=== PATIENT | female | born 1970 | race Asian ===

== ENCOUNTER 2017-02-21 08:48 | Outpatient (CLI) | payer OTHER ==
[~2017-02-21 08:48] MED LIST: MYLANTA
[2017-02-21 09:58] LABS: ANION GAP 13.9 (8-16); CARBON DIOXIDE 28.8 mmol/L (21-32); CREATININE 0.6 mg/dL (0.6-1.3); POTASSIUM 3.7 mmol/L (3.5-5.1); TOTAL BILIRUBIN 1.1 mg/dL (0.0-1.0); TOTAL PROTEIN, SERUM 7.5 g/dL (6.4-8.2)
[2017-02-22 10:08] LABS: VITAMIN D, 25-HYDROXY 32.1 ng/mL (30.0-100.0)
[2017-02-22 12:36] LABS: HEMOGLOBIN A1C 7.9 % (4.8-5.6)
== END 2017-02-21 19:59 | disposition home or self-care (01) ==
LOC: MLB 08:48
PROVIDERS: ATTEND Internal Medicine Geriatric Medicine
DX: E11.9 Type 2 diabetes mellitus without complications (principal); E55.9 Vitamin D deficiency, unspecified
CPT/HCPCS: 36415; 80053; 82306; 83036

== ENCOUNTER 2017-06-02 10:10 | Outpatient (CLI) | payer OTHER ==
[2017-06-02 10:47] LABS: ALBUMIN 4.2 g/dL (3.4-5.0); CARBON DIOXIDE 27.1 mmol/L (21-32); CREATININE 0.7 mg/dL (0.6-1.3); POTASSIUM 4.1 mmol/L (3.5-5.1); TOTAL BILIRUBIN 1.6 mg/dL (0.0-1.0)
== END 2017-06-02 20:17 | disposition home or self-care (01) ==
LOC: MLB 10:10
PROVIDERS: ATTEND Internal Medicine Geriatric Medicine
DX: E11.9 Type 2 diabetes mellitus without complications (principal); E78.5 Hyperlipidemia, unspecified
CPT/HCPCS: 36415; 80053; 83036

== ENCOUNTER 2017-09-03 11:40 | Outpatient (CLI) | payer OTHER ==
[2017-09-03 12:52] LABS: ALBUMIN 4.6 g/dL (3.4-5.0); ANION GAP 11.9 (8-16); CARBON DIOXIDE 28.4 mmol/L (21-32); CHOL/HDL RATIO 3.1 (1-4.5); CREATININE 0.7 mg/dL (0.6-1.3); POTASSIUM 3.3 mmol/L (3.5-5.1); TOTAL BILIRUBIN 1.4 mg/dL (0.0-1.0)
[2017-09-06 12:21] LABS: MICROALBUMIN, UR RANDOM 1804.6 ug/mL (Not Estab.)
== END 2017-09-03 21:53 | disposition home or self-care (01) ==
LOC: MLB 11:40
PROVIDERS: ATTEND Internal Medicine Geriatric Medicine
DX: E11.9 Type 2 diabetes mellitus without complications (principal); Z85.038 Personal history of other malignant neoplasm of large intestine
CPT/HCPCS: 36415; 80053; 82043; 82378; 83036

== ENCOUNTER 2017-12-15 07:37 | Outpatient (CLI) | payer OTHER ==
[2017-12-15 09:50] LABS: CARBON DIOXIDE 29.9 mmol/L (21-32); POTASSIUM 3.9 mmol/L (3.5-5.1)
[2017-12-15 09:51] LABS: ALBUMIN 4.3 g/dL (3.4-5.0); CREATININE 0.7 mg/dL (0.6-1.3); TOTAL BILIRUBIN 1.4 mg/dL (0.0-1.0)
[2017-12-15 10:06] LABS: CHOL/HDL RATIO 3.5 (1-4.5)
[2017-12-17 06:18] LABS: MICROALBUMIN, UR RANDOM 201.4 ug/mL (Not Estab.)
== END 2017-12-15 20:44 | disposition home or self-care (01) ==
LOC: MLB 07:37
PROVIDERS: ATTEND Internal Medicine Geriatric Medicine
DX: E11.9 Type 2 diabetes mellitus without complications (principal); Z85.038 Personal history of other malignant neoplasm of large intestine
CPT/HCPCS: 36415; 80053; 82043; 82378; 83036

== ENCOUNTER 2018-04-21 08:41 | Outpatient (CLI) | payer OTHER ==
[2018-04-21 09:30] LABS: ALBUMIN 3.9 g/dL (3.4-5.0); ANION GAP 12.8 (8-16); CARBON DIOXIDE 28.5 mmol/L (21-32); CHOL/HDL RATIO 3.8 (1-4.5); CREATININE 0.7 mg/dL (0.6-1.3); POTASSIUM 4.3 mmol/L (3.5-5.1)
[2018-04-22 12:13] LABS: HEPATITIS B SURFACE ANTIBODY Non Reactive (.); HEPATITIS B SURFACE ANTIGEN Negative (Negative)
== END 2018-04-21 17:24 | disposition home or self-care (01) ==
LOC: MLB 08:41
PROVIDERS: ATTEND Internal Medicine Geriatric Medicine
DX: K76.0 Fatty (change of) liver, not elsewhere classified (principal); E11.9 Type 2 diabetes mellitus without complications; E78.5 Hyperlipidemia, unspecified
CPT/HCPCS: 36415; 80053; 83036; 86706; 86803; 87340

== ENCOUNTER 2018-08-15 08:47 | Outpatient (CLI) | payer OTHER ==
[2018-08-15 09:58] LABS: ANION GAP 9.5 (8-16); CARBON DIOXIDE 27.5 mmol/L (21-32); CREATININE 0.6 mg/dL (0.6-1.3)
== END 2018-08-15 21:38 | disposition home or self-care (01) ==
LOC: MLB 08:47
PROVIDERS: ATTEND Internal Medicine Geriatric Medicine
DX: E11.9 Type 2 diabetes mellitus without complications (principal)
CPT/HCPCS: 36415; 80048; 82378; 83036

== ENCOUNTER → 2018-12-08 | Outpatient (CLI) | payer OTHER ==
[2018-12-08 10:49] LABS: ALBUMIN 4.5 g/dL (3.4-5.0); ANION GAP 10.2 (8-16); CARBON DIOXIDE 29.5 mmol/L (21-32); CHOL/HDL RATIO 3.3 (1-4.5); CREATININE 0.7 mg/dL (0.6-1.3); POTASSIUM 3.7 mmol/L (3.5-5.1); TOTAL BILIRUBIN 1.4 mg/dL (0.0-1.0)
[2018-12-09 08:14] LABS: MICROALBUMIN, UR RANDOM 205.1 ug/mL (Not Estab.)
== END | disposition home or self-care (01) ==
LOC: MLB 09:48
PROVIDERS: ATTEND Internal Medicine Geriatric Medicine
DX: E11.9 Type 2 diabetes mellitus without complications (principal); K76.0 Fatty (change of) liver, not elsewhere classified; E55.9 Vitamin D deficiency, unspecified; Z76.89 Persons encountering health services in other specified circumstances
CPT/HCPCS: 36415; 80053; 82043; 82306; 82378; 83036

== ENCOUNTER 2019-04-06 08:44 | Outpatient (CLI) | payer OTHER ==
[2019-04-06 09:26] LABS: ALBUMIN 4.2 g/dL (3.4-5.0); ANION GAP 14.1 (8-16); CARBON DIOXIDE 27.8 mmol/L (21-32); CHOL/HDL RATIO 3.3 (1-4.5); CREATININE 0.7 mg/dL (0.6-1.3); POTASSIUM 3.9 mmol/L (3.5-5.1); TOTAL BILIRUBIN 0.8 mg/dL (0.0-1.0)
== END 2019-04-06 21:05 | disposition home or self-care (01) ==
LOC: MLB 08:44
PROVIDERS: ATTEND Internal Medicine Geriatric Medicine
DX: E11.9 Type 2 diabetes mellitus without complications (principal); E78.5 Hyperlipidemia, unspecified; E55.9 Vitamin D deficiency, unspecified
CPT/HCPCS: 36415; 80053; 82306; 83036

== ENCOUNTER 2019-07-12 07:46 | Outpatient (CLI) | payer OTHER ==
[2019-07-12 08:28] LABS: BASOPHILS % (AUTO) 0.5 % (0.0-2.0); EOSINOPHILS # (AUTO) 0.3 K/uL (0-0.4); EOSINOPHILS % (AUTO) 3.6 % (0.0-4.0); HEMATOCRIT 40.1 % (36-48); HEMOGLOBIN 13.3 g/dL (12.0-16.0); LYMPHOCYTES # (AUTO) 2.9 K/uL (2.5-16.5); LYMPHOCYTES % (AUTO) 38.4 % (20.5-51.1); MEAN CORPUSCULAR HEMOGLOBIN 29 pg (27-31); MEAN CORPUSCULAR HGB CONC 33 g/dL (33-37); MEAN CORPUSCULAR VOLUME 87.2 fL (80-94); MONOCYTES # (AUTO) 0.6 K/uL (0.8-1.0); MONOCYTES % (AUTO) 8.2 % (1.7-9.3); NEUTROPHILS # (AUTO) 3.7 K/uL (1.8-7.7); NEUTROPHILS % (AUTO) 49.3 % (42.2-75.2); PLATELET COUNT (AUTO) 316 K/uL (140-450); RED CELL DISTRIBUTION WIDTH 12.9 % (11.6-13.7); WHITE BLOOD COUNT (AUTO) 7.4 K/uL (4.8-10.8)
[2019-07-12 11:06] LABS: ALBUMIN 4.3 g/dL (3.4-5.0); ANION GAP 17.2 (8-16); CARBON DIOXIDE 25.7 mmol/L (21-32); CHOL/HDL RATIO 3.2 (1-4.5); CREATININE 0.7 mg/dL (0.6-1.3); POTASSIUM 3.9 mmol/L (3.5-5.1); TOTAL BILIRUBIN 1.3 mg/dL (0.0-1.0)
[2019-07-13 09:28] LABS: FOLLICLE STIMULATING HORMONE 47.5 mIU/mL (.)
[2019-07-14 09:12] LABS: ANTI-NUCLEAR ANTIBODY,DIRECT Negative (Negative)
== END 2019-07-12 20:09 | disposition home or self-care (01) ==
LOC: MLB 07:46
PROVIDERS: ATTEND Internal Medicine Geriatric Medicine
DX: E11.9 Type 2 diabetes mellitus without complications (principal); E55.9 Vitamin D deficiency, unspecified; N95.1 Menopausal and female climacteric states; K76.0 Fatty (change of) liver, not elsewhere classified
CPT/HCPCS: 36415; 80053; 82306; 83001; 83036; 83516; 85025; 86038

== ENCOUNTER 2019-10-18 08:44 | Outpatient (CLI) | payer OTHER ==
[2019-10-18 09:14] LABS: BASOPHILS % (AUTO) 0.5 % (0.0-2.0); EOSINOPHILS # (AUTO) 0.2 K/uL (0-0.4); EOSINOPHILS % (AUTO) 2.6 % (0.0-4.0); HEMOGLOBIN 13.9 g/dL (12.0-16.0); LYMPHOCYTES # (AUTO) 3.7 K/uL (2.5-16.5); LYMPHOCYTES % (AUTO) 44.5 % (20.5-51.1); MEAN CORPUSCULAR HEMOGLOBIN 29 pg (27-31); MEAN CORPUSCULAR HGB CONC 33 g/dL (33-37); MONOCYTES # (AUTO) 0.6 K/uL (0.8-1.0); MONOCYTES % (AUTO) 7.4 % (1.7-9.3); NEUTROPHILS # (AUTO) 3.7 K/uL (1.8-7.7); PLATELET COUNT (AUTO) 368 K/uL (140-450); RED BLOOD CELL COUNT(AUTO) 4.77 MIL/uL (4.20-5.40); RED CELL DISTRIBUTION WIDTH 13.2 % (11.6-13.7); WHITE BLOOD COUNT (AUTO) 8.2 K/uL (4.8-10.8)
[2019-10-18 09:30] LABS: ALBUMIN 4.5 g/dL (3.4-5.0); ANION GAP 13.4 (8-16); CARBON DIOXIDE 29.1 mmol/L (21-32); CHOL/HDL RATIO 2.8 (1-4.5); CREATININE 0.6 mg/dL (0.6-1.3); POTASSIUM 3.5 mmol/L (3.5-5.1); TOTAL BILIRUBIN 1.8 mg/dL (0.0-1.0)
[2019-10-19 08:27] LABS: MICROALBUMIN, UR RANDOM 312.2 ug/mL (Not Estab.)
== END 2019-10-18 21:18 | disposition home or self-care (01) ==
LOC: MLB 08:44
PROVIDERS: ATTEND Internal Medicine Geriatric Medicine
DX: E78.5 Hyperlipidemia, unspecified (principal); E11.9 Type 2 diabetes mellitus without complications; R80.9 Proteinuria, unspecified; I10 Essential (primary) hypertension
CPT/HCPCS: 36415; 80053; 82043; 83036; 85025

== ENCOUNTER 2019-12-04 08:30 | Outpatient (CLI) | payer OTHER ==
[2019-12-04 10:26] LABS: ALBUMIN 3.8 g/dL (3.4-5.0); ANION GAP 16.9 (8-16); CARBON DIOXIDE 26.3 mmol/L (21-32); CHOL/HDL RATIO 3.9 (1-4.5); CREATININE 0.6 mg/dL (0.6-1.3); POTASSIUM 4.2 mmol/L (3.5-5.1); TOTAL BILIRUBIN 0.8 mg/dL (0.0-1.0)
== END 2019-12-04 21:06 | disposition home or self-care (01) ==
LOC: MLB 08:30
PROVIDERS: ATTEND Internal Medicine Geriatric Medicine
DX: E11.9 Type 2 diabetes mellitus without complications (principal); K76.0 Fatty (change of) liver, not elsewhere classified; Z86.010 Personal history of colon polyps
CPT/HCPCS: 36415; 80053; 82378; 83036

== ENCOUNTER 2020-04-03 09:19 | Outpatient (CLI) | payer OTHER ==
[2020-04-03 09:53] LABS: BASOPHILS % (AUTO) 0.5 % (0.0-2.0); EOSINOPHILS # (AUTO) 0.2 K/uL (0-0.4); EOSINOPHILS % (AUTO) 2.9 % (0.0-4.0); HEMATOCRIT 39.8 % (36-48); HEMOGLOBIN 13.2 g/dL (12.0-16.0); LYMPHOCYTES # (AUTO) 3.5 K/uL (2.5-16.5); LYMPHOCYTES % (AUTO) 44.9 % (20.5-51.1); MEAN CORPUSCULAR HEMOGLOBIN 29 pg (27-31); MEAN CORPUSCULAR HGB CONC 33 g/dL (33-37); MEAN CORPUSCULAR VOLUME 88.1 fL (80-94); MONOCYTES # (AUTO) 0.6 K/uL (0.8-1.0); MONOCYTES % (AUTO) 7.1 % (1.7-9.3); NEUTROPHILS # (AUTO) 3.5 K/uL (1.8-7.7); NEUTROPHILS % (AUTO) 44.6 % (42.2-75.2); PLATELET COUNT (AUTO) 300 K/uL (140-450); RED BLOOD CELL COUNT(AUTO) 4.51 MIL/uL (4.20-5.40); RED CELL DISTRIBUTION WIDTH 13.1 % (11.6-13.7); WHITE BLOOD COUNT (AUTO) 7.8 K/uL (4.8-10.8)
[2020-04-03 10:05] LABS: ALBUMIN 4.2 g/dL (3.4-5.0); CARBON DIOXIDE 28.3 mmol/L (21-32); CHOL/HDL RATIO 3.3 (1-4.5); CREATININE 0.7 mg/dL (0.6-1.3); POTASSIUM 4.3 mmol/L (3.5-5.1); TOTAL BILIRUBIN 1.2 mg/dL (0.0-1.0)
== END 2020-04-03 20:54 | disposition home or self-care (01) ==
LOC: MLB 09:19
PROVIDERS: ATTEND Internal Medicine Geriatric Medicine
DX: E11.9 Type 2 diabetes mellitus without complications (principal); E55.9 Vitamin D deficiency, unspecified; K76.0 Fatty (change of) liver, not elsewhere classified
CPT/HCPCS: 36415; 80053; 82103; 82306; 82390; 82728; 83036; 83540; 85025

== ENCOUNTER 2020-07-01 08:54 | Outpatient (CLI) | payer OTHER ==
[2020-07-01 10:22] LABS: ALBUMIN 4.3 g/dL (3.4-5.0); ANION GAP 17.1 (8-16); CARBON DIOXIDE 25.1 mmol/L (21-32); CHOL/HDL RATIO 3.2 (1-4.5); CREATININE 0.7 mg/dL (0.6-1.3); POTASSIUM 4.2 mmol/L (3.5-5.1); TOTAL BILIRUBIN 0.9 mg/dL (0.0-1.0)
[2020-07-02 09:09] LABS: MICROALBUMIN, UR RANDOM 104.4 ug/mL (Not Estab.)
== END 2020-07-01 18:09 | disposition home or self-care (01) ==
LOC: MLB 08:54
PROVIDERS: ATTEND Internal Medicine Geriatric Medicine
DX: E11.9 Type 2 diabetes mellitus without complications (principal); I10 Essential (primary) hypertension; K76.0 Fatty (change of) liver, not elsewhere classified; R80.9 Proteinuria, unspecified
CPT/HCPCS: 36415; 80053; 82043; 83036

== ENCOUNTER 2020-07-22 18:39 | Outpatient (CLI) | payer OTHER ==
[2020-07-22 21:33] LABS: BARBITURATE, URINE NEGATIVE ng/ml (NEG <=200); BENZODIAZEPINE, URINE NEGATIVE ng/mL (NEG <=200); CANNABINOID, URINE NEGATIVE ng/mL (NEG <=50); COCAINE, URINE NEGATIVE ng/mL (NEG <=300); OPIATE, URINE NEGATIVE ng/mL (NEG <=2000); PHENCYCLIDINE SCREEN,URINE NEGATIVE ng/mL (NEG <=25)
== END 2020-07-22 21:23 | disposition home or self-care (01) ==
LOC: MLB 18:39
PROVIDERS: ATTEND Internal Medicine Geriatric Medicine
DX: R82.5 Elevated urine levels of drugs, medicaments and biological substances (principal)
CPT/HCPCS: 80305

== ENCOUNTER 2021-03-05 09:06 | Outpatient (CLI) | payer OTHER ==
[2021-03-05 09:39] LABS: BASOPHILS # (AUTO) 0.1 K/uL (0.00-0.22); BASOPHILS % (AUTO) 0.8 % (0.0-2.0); EOSINOPHILS # (AUTO) 0.2 K/uL (0-0.4); EOSINOPHILS % (AUTO) 2.9 % (0.0-4.0); HEMATOCRIT 39.4 % (36-48); HEMOGLOBIN 13.1 g/dL (12.0-16.0); LYMPHOCYTES # (AUTO) 3.5 K/uL (2.5-16.5); LYMPHOCYTES % (AUTO) 44.3 % (20.5-51.1); MEAN CORPUSCULAR HEMOGLOBIN 29 pg (27-31); MEAN CORPUSCULAR HGB CONC 33 g/dL (33-37); MEAN CORPUSCULAR VOLUME 87.2 fL (80-94); MONOCYTES # (AUTO) 0.6 K/uL (0.8-1.0); MONOCYTES % (AUTO) 7.3 % (1.7-9.3); NEUTROPHILS # (AUTO) 3.6 K/uL (1.8-7.7); NEUTROPHILS % (AUTO) 44.7 % (42.2-75.2); PLATELET COUNT (AUTO) 318 K/uL (140-450); RED BLOOD CELL COUNT(AUTO) 4.52 MIL/uL (4.20-5.40); RED CELL DISTRIBUTION WIDTH 13.3 % (11.6-13.7)
[2021-03-05 09:58] LABS: ALBUMIN 4.3 g/dL (3.4-5.0); ANION GAP 12.3 (8-16); CARBON DIOXIDE 29.6 mmol/L (21-32); CHOL/HDL RATIO 2.8 (1-4.5); CREATININE 0.7 mg/dL (0.6-1.3); POTASSIUM 3.9 mmol/L (3.5-5.1); THYROID STIMULATING HORMONE 1.02 uIU/mL (0.34-3.74); TOTAL BILIRUBIN 1.2 mg/dL (0.0-1.0)
[2021-03-06 08:08] LABS: MICROALBUMIN, UR RANDOM 101.9 ug/mL (Not Estab.)
== END 2021-03-05 17:38 | disposition home or self-care (01) ==
LOC: MLB 09:06
PROVIDERS: ATTEND Internal Medicine Geriatric Medicine
DX: E11.9 Type 2 diabetes mellitus without complications (principal); E78.5 Hyperlipidemia, unspecified; E55.9 Vitamin D deficiency, unspecified; R80.9 Proteinuria, unspecified; Z86.010 Personal history of colon polyps
CPT/HCPCS: 36415; 80053; 82043; 82306; 82378; 83036; 84443; 85025

== ENCOUNTER 2021-09-08 10:30 | Outpatient (CLI) | payer OTHER ==
[2021-09-08 11:04] LABS: BASOPHILS % (AUTO) 0.6 % (0.0-2.0); EOSINOPHILS # (AUTO) 0.2 K/uL (0-0.4); EOSINOPHILS % (AUTO) 3.3 % (0.0-4.0); HEMATOCRIT 38.9 % (36-48); HEMOGLOBIN 12.9 g/dL (12.0-16.0); LYMPHOCYTES % (AUTO) 42.8 % (20.5-51.1); MEAN CORPUSCULAR HEMOGLOBIN 28 pg (27-31); MEAN CORPUSCULAR HGB CONC 33 g/dL (33-37); MEAN CORPUSCULAR VOLUME 85.2 fL (80-94); MONOCYTES # (AUTO) 0.5 K/uL (0.8-1.0); MONOCYTES % (AUTO) 7.4 % (1.7-9.3); NEUTROPHILS # (AUTO) 3.2 K/uL (1.8-7.7); NEUTROPHILS % (AUTO) 45.9 % (42.2-75.2); PLATELET COUNT (AUTO) 355 K/uL (140-450); RED BLOOD CELL COUNT(AUTO) 4.57 MIL/uL (4.20-5.40); RED CELL DISTRIBUTION WIDTH 13.5 % (11.6-13.7)
[2021-09-08 12:12] LABS: ALBUMIN 4.2 g/dL (3.4-5.0); ANION GAP 10.4 (8-16); CARBON DIOXIDE 29.5 mmol/L (21-32); CHOL/HDL RATIO 3.1 (1-4.5); CREATININE 0.6 mg/dL (0.6-1.3); POTASSIUM 3.9 mmol/L (3.5-5.1); TOTAL BILIRUBIN 1.3 mg/dL (0.0-1.0)
== END 2021-09-08 20:14 | disposition home or self-care (01) ==
LOC: MLB 10:30
PROVIDERS: ATTEND Internal Medicine Geriatric Medicine
DX: E11.69 Type 2 diabetes mellitus with other specified complication (principal); E78.5 Hyperlipidemia, unspecified
CPT/HCPCS: 36415; 80053; 82043; 83036; 85025

== ENCOUNTER 2021-12-21 09:25 | Outpatient (CLI) | payer OTHER | END 2021-12-21 21:42 | disposition home or self-care (01) | LOC: MLB 09:25 | PROVIDERS: ATTEND Internal Medicine Geriatric Medicine | DX: E11.9 Type 2 diabetes mellitus without complications (principal) | CPT/HCPCS: 36415; 83036; 86886; 86900; 86901 ==

== ENCOUNTER 2022-02-19 09:09 | Outpatient (CLI) | payer OTHER ==
[2022-02-19 10:12] LABS: APPEARANCE,URINE SL CLOUDY (CLEAR); BILIRUBIN,URINE NEGATIVE (NEGATIVE); BLOOD, URINE TRACE-I (NEGATIVE); COLOR,URINE YELLOW (YELLOW); LEUKOCYTE ESTERASE ,URINE TRACE (NEGATIVE); NITRITE, URINE POSITIVE (NEGATIVE); UGLUCOSE NEGATIVE (NEGATIVE)
[2022-02-19 10:22] LABS: RBC,URINE 0-5 /HPF (0-5); WBC,URINE 0-5 /HPF (0-5)
[2022-02-19 10:23] LABS: ANION GAP 12.7 (8-16); CALCIUM OXALATE CRYSTALS,UR None Seen /HPF (None Seen); CARBON DIOXIDE 27.2 mmol/L (21-32); CHOL/HDL RATIO 2.5 (1-4.5); COARSE GRANULAR CASTS,URINE None Seen /LPF (None Seen); CREATININE 0.6 mg/dL (0.6-1.3); FINE GRANULAR CASTS,URINE None Seen /LPF (None Seen); HYALINE CASTS, URINE None Seen /LPF (None Seen); OTHER CASTS, URINE None Seen /LPF (None Seen); OTHER CRYSTALS,URINE None Seen /HPF (None Seen); POTASSIUM 3.9 mmol/L (3.5-5.1); RED BLOOD CELL CASTS,URINE None Seen /LPF (None Seen); THYROID STIMULATING HORMONE 1.13 uIU/mL (0.34-3.74); TOTAL BILIRUBIN 0.9 mg/dL (0.0-1.0); TRICHOMONAS,URINE None Seen /HPF (None Seen); TRIPLE PHOSPHATE CRYSTAL,UR None Seen /HPF (None Seen); URIC ACID CRYSTALS,URINE None Seen /HPF (None Seen); URINE AMORPHOUS URATE None Seen /HPF (None Seen); WAXY CASTS,URINE None Seen /LPF (None Seen); YEAST,URINE Few /HPF (None Seen)
[2022-02-19 10:57] LABS: BASOPHILS # (AUTO) 0.1 K/uL (0.00-0.22); EOSINOPHILS # (AUTO) 0.2 K/uL (0-0.4); EOSINOPHILS % (AUTO) 3.8 % (0.0-4.0); HEMATOCRIT 38.8 % (36-48); HEMOGLOBIN 12.9 g/dL (12.0-16.0); LYMPHOCYTES # (AUTO) 2.6 K/uL (2.5-16.5); LYMPHOCYTES % (AUTO) 43.5 % (20.5-51.1); MEAN CORPUSCULAR HEMOGLOBIN 29 pg (27-31); MEAN CORPUSCULAR HGB CONC 33 g/dL (33-37); MEAN CORPUSCULAR VOLUME 86.8 fL (80-94); MONOCYTES # (AUTO) 0.4 K/uL (0.8-1.0); MONOCYTES % (AUTO) 6.7 % (1.7-9.3); NEUTROPHILS # (AUTO) 2.7 K/uL (1.8-7.7); PLATELET COUNT (AUTO) 398 K/uL (140-450); RED BLOOD CELL COUNT(AUTO) 4.47 MIL/uL (4.20-5.40); RED CELL DISTRIBUTION WIDTH 13.6 % (11.6-13.7)
== END 2022-02-19 20:26 | disposition home or self-care (01) ==
LOC: MLB 09:09
PROVIDERS: ATTEND Internal Medicine Geriatric Medicine
DX: E11.9 Type 2 diabetes mellitus without complications (principal); Z85.038 Personal history of other malignant neoplasm of large intestine
CPT/HCPCS: 36415; 80053; 81001; 82043; 82306; 82378; 83036; 84443; 85025; 87086

== ENCOUNTER 2022-06-25 08:36 | Outpatient (CLI) | payer OTHER ==
[2022-06-25 13:46] LABS: ANION GAP 19.3 (8-16); CARBON DIOXIDE 22.6 mmol/L (21-32); CHOL/HDL RATIO 2.1 (1-4.5); CREATININE 0.7 mg/dL (0.6-1.3); POTASSIUM 3.9 mmol/L (3.5-5.1); TOTAL BILIRUBIN 1.3 mg/dL (0.0-1.0)
== END 2022-06-25 19:58 | disposition home or self-care (01) ==
LOC: MLB 08:36
PROVIDERS: ATTEND Internal Medicine Geriatric Medicine
DX: I10 Essential (primary) hypertension (principal); E11.9 Type 2 diabetes mellitus without complications; K76.0 Fatty (change of) liver, not elsewhere classified
CPT/HCPCS: 36415; 80053; 83036

== ENCOUNTER 2022-10-12 07:25 | Outpatient (CLI) | payer OTHER ==
[2022-10-12 08:13] LABS: BASOPHILS % (AUTO) 0.5 % (0.0-2.0); EOSINOPHILS # (AUTO) 0.2 K/uL (0-0.4); EOSINOPHILS % (AUTO) 3.4 % (0.0-4.0); HEMATOCRIT 35.2 % (36-48); HEMOGLOBIN 11.8 g/dL (12.0-16.0); LYMPHOCYTES # (AUTO) 3.3 K/uL (2.5-16.5); LYMPHOCYTES % (AUTO) 46.7 % (20.5-51.1); MEAN CORPUSCULAR HEMOGLOBIN 29 pg (27-31); MEAN CORPUSCULAR HGB CONC 33 g/dL (33-37); MEAN CORPUSCULAR VOLUME 86.9 fL (80-94); MONOCYTES # (AUTO) 0.5 K/uL (0.8-1.0); MONOCYTES % (AUTO) 7.2 % (1.7-9.3); NEUTROPHILS % (AUTO) 42.2 % (42.2-75.2); PLATELET COUNT (AUTO) 290 K/uL (140-450); RED BLOOD CELL COUNT(AUTO) 4.05 MIL/uL (4.20-5.40); RED CELL DISTRIBUTION WIDTH 13.7 % (11.6-13.7); WHITE BLOOD COUNT (AUTO) 7.2 K/uL (4.8-10.8)
[2022-10-12 09:08] LABS: ANION GAP 16.3 (8-16); CARBON DIOXIDE 26.5 mmol/L (21-32); CHOL/HDL RATIO 2.3 (1-4.5); CREATININE 0.6 mg/dL (0.6-1.3); POTASSIUM 3.8 mmol/L (3.5-5.1)
== END 2022-10-12 21:58 | disposition home or self-care (01) ==
LOC: MLB 07:25
PROVIDERS: ATTEND Internal Medicine Geriatric Medicine
DX: E11.9 Type 2 diabetes mellitus without complications (principal); Z86.010 Personal history of colon polyps
CPT/HCPCS: 36415; 80053; 82378; 83036; 85025

== ENCOUNTER 2022-12-29 07:42 | Outpatient (CLI) | payer OTHER ==
[2022-12-29 08:24] LABS: BASOPHILS # (AUTO) 0.1 K/uL (0.00-0.22); BASOPHILS % (AUTO) 0.9 % (0.0-2.0); EOSINOPHILS # (AUTO) 0.2 K/uL (0-0.4); EOSINOPHILS % (AUTO) 2.5 % (0.0-4.0); HEMATOCRIT 39.9 % (36-48); HEMOGLOBIN 13.1 g/dL (12.0-16.0); LYMPHOCYTES # (AUTO) 3.4 K/uL (2.5-16.5); LYMPHOCYTES % (AUTO) 44.3 % (20.5-51.1); MEAN CORPUSCULAR HEMOGLOBIN 29 pg (27-31); MEAN CORPUSCULAR HGB CONC 33 g/dL (33-37); MEAN CORPUSCULAR VOLUME 87.3 fL (80-94); MONOCYTES # (AUTO) 0.6 K/uL (0.8-1.0); MONOCYTES % (AUTO) 7.8 % (1.7-9.3); NEUTROPHILS # (AUTO) 3.5 K/uL (1.8-7.7); NEUTROPHILS % (AUTO) 44.5 % (42.2-75.2); PLATELET COUNT (AUTO) 338 K/uL (140-450); RED BLOOD CELL COUNT(AUTO) 4.58 MIL/uL (4.20-5.40); RED CELL DISTRIBUTION WIDTH 13.8 % (11.6-13.7); WHITE BLOOD COUNT (AUTO) 7.8 K/uL (4.8-10.8)
[2022-12-29 10:20] LABS: ALBUMIN 4.6 g/dL (3.4-5.0); ANION GAP 15.4 (8-16); CARBON DIOXIDE 26.3 mmol/L (21-32); CHOL/HDL RATIO 2.3 (1-4.5); CREATININE 0.7 mg/dL (0.6-1.3); POTASSIUM 3.7 mmol/L (3.5-5.1); TOTAL BILIRUBIN 1.4 mg/dL (0.0-1.0)
[2022-12-30 09:07] LABS: MICROALBUMIN, UR RANDOM 69.3 ug/mL (Not Estab.)
[2022-12-31 07:02] LABS: FOLIC ACID 13.8 ng/mL (>3.0)
== END 2022-12-29 20:14 | disposition home or self-care (01) ==
LOC: MLB 07:42
PROVIDERS: ATTEND Internal Medicine Geriatric Medicine
DX: Z00.00 Encounter for general adult medical examination without abnormal findings (principal); E11.9 Type 2 diabetes mellitus without complications; D64.9 Anemia, unspecified
CPT/HCPCS: 36415; 80053; 82043; 82306; 82607; 82728; 82746; 83036; 83540; 85025